=== PATIENT | female | born 1980 | race Caucasian/White ===

== ENCOUNTER 2016-07-05 10:07 | Inpatient (IN) | payer OTHER ==
[2016-06-29 09:35] LABS: BASOPHILS 0.1 %; BASOPHILS ABSOLUTE 0.01 10/3/uL (0.0-0.16); EOSINOPHILS 1.2 %; HEMATOCRIT 36.1 % (36.0-48.0); HEMOGLOBIN 11.6 g/dL (12.0-16.0); IMMATURE GRANULOCYTES 0.2 %; IMMATURE GRANULOCYTES ABSOLUTE 0.02 10/3/uL (0.0-0.11); LYMPHOCYTES 22.2 %; LYMPHOCYTES ABSOLUTE 1.92 10/3/uL (0.67-4.30); MEAN CORPUS HGB CONC 32.1 g/dL (32.0-36.0); MEAN CORPUSCULAR HEMOGLOB 24.4 pg (26.0-34.0); MEAN CORPUSCULAR VOLUME 75.8 fL (80-100); MEAN PLATELET VOLUME 9.3 fL (9.2-13.0); MONOCYTES 5.9 %; MONOCYTES ABSOLUTE 0.51 10/3/uL (0.21-1.20); NEUTROPHILS 70.4 %; NEUTROPHILS ABSOLUTE 6.08 10/3/uL (2.02-8.40); PLATELET COUNT 339 10/3/uL (150-400); RBC DISTRIBUTION WIDTH 16.6 % (12.0-16.0); RED CELL COUNT 4.76 10/6/uL (4.0-5.6); WHITE BLOOD CELLS 8.6 10/3/uL (4.5-10.5)
[2016-06-29 09:36] LABS: MANUAL DIFF NO %
[2016-06-29 09:42] LABS: PARTIAL THROMBO TIME 25.8 SEC (22.5-37.2); PROTIME (NOT ORD) 13.5 SEC (12.0-14.5)
[2016-06-29 09:56] LABS: ASCORBIC ACID (UR NOT ORDER) NEG (NEG); BILIRUBIN, URINE NEGATIVE (NEG); KETONE, URINE 80 MG/DL (NEG); LEUKOCYTE ESTERASE(NOT OR NEG (NEG); WBC (NOT ORDERED) (RFLEX) 4 (0-5)
[2016-06-29 10:31] LABS: A/G RATIO 1.2 (0.7-1.9); ALBUMIN 3.9 G/DL (3.5-5.0); ALKALINE PHOSPHATASE 47 U/L (45-117); BUN (BLOOD UREA NITROGEN) 12 MG/DL (6-23); CALCIUM, SERUM 9.1 MG/DL (8.5-10.4); CHLORIDE, SERUM 107 MMOL/L (96-112); CHOL/HDL RATIO(NOT ORDER) 4.6 (0-5); CHOLESTEROL 194 MG/DL (< 200); CO2 (CARBON DIOXIDE) 26 MMOL/L (24-34); CREATININE 0.89 MG/DL (0.55-1.02); GFR AFRICAN AMERICAN 96 ML/MIN (>=60); GFR NON AFRICAN AMERICAN 83 ML/MIN (>=60); GLOBULIN 3.2 G/DL (2.5-4.1); GLUCOSE, SERUM 106 MG/DL (60-99); HDL CHOLESTEROL 42 MG/DL (> 49); IRON, SERUM 19 MCG/DL (35-150); LDL CHOLESTEROL 121 MG/DL (< 130); NON-HDL CHOLESTEROL 152 MG/DL (< 160); POTASSIUM, SERUM 4.1 MMOL/L (3.5-5.3); SGOT(AST) 16 U/L (5-40); SGPT(ALT) 19 U/L (5-65); SODIUM, SERUM 140 MMOL/L (135-148); TOTAL BILIRUBIN 0.3 MG/DL (0-1.2); TOTAL PROTEIN 7.1 G/DL (6.0-8.5); TRIGLYCERIDE 159 MG/DL (< 150)
[2016-06-29 10:32] LABS: FOLATE 27.2 NG/ML (>5.2)
--- NOTE | ~2016-07-05 | HP ---
History And Physical [facility] [id number] [place]. [address] NAME: JOSE DAVIDMay : 78 STATUS : PRE IN PAT#: [id number] AGE: 36 ADM/REG DATE : MR#: [id number] REPORT SERV DATE: 07/01/16 DICTATED BY: EDEL FABIAN DATE: 07/01/16 REPORT STATUS : Draft TRANSCRIBED BY: MODFlores DATE: 07/01/16 DATE OF ADMISSION: 07/05/2016 DICTATED BY: Yumiko Lechuga APRN, STAS MONTERROSO CHIEF COMPLAINT: Morbid obesity. HISTORY OF PRESENT ILLNESS: The patient is a pleasant 36-year-old female, who presents for consideration for bariatric surgery, specifically the sleeve gastrectomy for the treatment of morbid obesity. In addition to her current weight, she also is struggling with several comorbidities including depression, arthropathy, reflux, and urinary incontinence. She has considered surgical intervention for years and recently attended the informational seminar at our office. She has struggled with her weight since the age of 8 and reports a maximum weight of 263 pounds in 2013. She has tried multiple attempts at weight loss in the past including low carb diets, low-calorie diets, and other self diets and exercise. She has successfully lost 25 pounds through these efforts. PAST MEDICAL HISTORY: The patient has a significant medical history for depression, currently treated with 1 medication with controlled symptoms; arthropathy of the knees, ankles, hips, and back; intermittent migraines; reflux; and urinary incontinence. PAST SURGICAL HISTORY: The patient's surgical history includes a LEEP procedure in 2003 and a section in 2006 with Pfannenstiel incision. FAMILY HISTORY: The patient's father has a significant history of diabetes, hypercholesterolemia, essential hypertension, and thyroid disorder as well as obesity. The patient's mother has a history of depressive disorder and emphysema. Sister with obesity and mitral valve disorder. SOCIAL HISTORY: The patient is a 36-year-old female who is and is employed as a training project manager at [employer]. She has a previous smoking history of 19 years, smoking approximately 1 pack per day. The patient reports quitting 06/10/2014. She denies EtOH use. MEDICATIONS: The patient's current medications include bupropion HCl SR 150 mg; diazepam 2 mg; lamotrigine 100 mg; omeprazole 20 mg; topiramate 100 mg; and zolpidem 10 mg. ALLERGIES: INCLUDE PENICILLIN AND SULFA. REVIEW OF SYSTEMS: CONSTITUTIONAL: The patient denies significant weight loss or weight gain that has been unintentional or unexplained. Denies fatigue, fever, or loss of appetite. EYES: No eye complaints. No irritation. She does currently wear glasses. HEAD, EARS, NOSE, AND THROAT: The patient reports no difficulty with hearing or ear pain. No sore throat, oral abnormalities, teeth problems, or hoarseness. CARDIOVASCULAR: Denies chest pain, palpitations, calf pain with exercise, varicose veins, History And Physical [address] [place]. [address] NAME: JOSE DAVIDMay : 78 STATUS : PRE IN PAT#: [id number] AGE: 36 ADM/REG DATE : MR#: [id number] REPORT SERV DATE: 07/01/16 DICTATED BY: EDEL FABIAN DATE: 07/01/16 REPORT STATUS : Draft TRANSCRIBED BY: MONSERRAT DATE: 07/01/16 or high blood pressure. She does report shortness of breath with moderate activity. RESPIRATORY: Denies cough, wheezing, shortness of breath coughing up blood, sleep apnea, or COPD. GASTROINTESTINAL: Reports reflux currently controlled with current medications. No abdominal pain, vomiting, diarrhea, dyspepsia, change in bowel habits, blood in stool, hepatitis, or liver disease. GENITOURINARY: No painful urination, blood in urine, increased frequency, or kidney disease. INTEGUMENTARY: No changing or abnormal moles, jaundice, rashes, nonhealing wounds, or sores. NEUROLOGICAL: The patient has history of frequent or severe headaches and migraines but denies loss of consciousness, weakness, numbness, seizures, or dizziness. PSYCHOLOGICAL: The patient does have a history of depression, currently controlled with current medications. Denies sleep disturbances, anxiety, or alcohol abuse. BLOOD AND LYMPH: The patient does have a history of low iron counts. She is currently taking MVI with iron. No blood clots, previous blood transfusions, HIV, or AIDS. PHYSICAL EXAMINATION: CONSTITUTIONAL: The patient's current weight is 242.8 pounds. Height 5 feet 3.5 inches. BMI of 42.3. VITAL SIGNS: Stable. Blood pressure 110/80, pulse 82, and temperature 97.4. GENERAL APPEARANCE: Well-nourished morbidly obese. No acute distress. Ambulating normally. HEAD: Pupils are equal, round, and reactive to light. ENT: Within normal limits. NECK: Supple. Trachea midline. No masses. CARDIOVASCULAR: Auscultation regular rate and rhythm. LUNGS: Respiratory effort without dyspnea, auscultation. No wheezes, rales, crackles, or rhonchi. Breath sounds are normal and clear to auscultation. ABDOMEN: Inspection and palpation, no tenderness, guarding, masses, or rebound tenderness. Abdomen is soft, obese, and nondistended. Bowel sounds normal. PSYCHIATRIC: Good judgment and insight. MENTAL STATUS: Normal mood and affect. The patient is active and alert. Oriented to time, place, and person. LABS: Have been completed according to preadmission testing protocol. CBC does show anemia with a red blood count of 4.76, RDW of 16.6, white blood count is normal at 8.6 with no shift, PTT 25.8, pro time 13.5. CMP shows glucose 106. Lipid panel, HDL cholesterol is 42, triglycerides 259, iron is 19; B12 is 601. TSH 2.620. Hemoglobin A1c is 5.6. Bariatric GI air study shows minimal gastroesophageal reflux into the lower esophagus, slightly delayed passage of barium tablet, otherwise normal upper GI. No hiatal hernia is found. ASSESSMENT AND PLAN: The patient is to be admitted for bariatric surgery, specifically the sleeve gastrectomy for the treatment of morbid obesity, having a BMI of 42.3 and a weight of 242.8 pounds. According to her current height and weight, she is 125.3 pounds of excess weight. This patient fulfills the NIH guidelines for bariatric surgery according to the 1991 consensus having either a BMI of more than 40 kg/m2 or BMI between 35 and 40 kg/m2 with associated comorbidities; has been overweight for at least 5 years and tried to lose weight several times and failed to maintain weight loss even with physician supervised programs. History And Physical [address] [place]. [address] NAME: MAGALY MAIN : 78 STATUS : PRE IN PAT#: [id number] AGE: 36 ADM/REG DATE : MR#: [id number] REPORT SERV DATE: 07/01/16 DICTATED BY: EDEL FABIAN DATE: 07/01/16 REPORT STATUS : Draft TRANSCRIBED BY: MONSERRAT DATE: 07/01/16 Surgical weight loss options were presented including the Vidhi-en-Y gastric bypass, biliopancreatic diversion with duodenal switch, sleeve gastrectomy, and adjustable gastric banding. This patient has chosen the sleeve gastrectomy surgery because of the features of no need for adjustments and less invasive than the Vidhi-en-Y gastric bypass with less risk of infection. The gastric bypass was not an option for this patient because of the invasiveness of the procedure, the associated risk, and the type of complications. The sleeve gastrectomy surgery, in our experience, can give this patient an average of 60% of excess weight loss over the next 12 to 18 months. The patient is aware of the risks and complications associated with the procedure which include staple leak, bleeding, obstruction, and infection which were discussed in length. Also this patient understands the importance of followup in order to achieve good result. This patient has completed a comprehensive education session and completed prior authorization steps as required by her insurance company. KWASI/MONSERRAT Edel Russo M.D. / [id number] CC: Faustina Ramirez
--- NOTE | ~2016-07-05 | OP ---
Record Of Operation [facility] [address] [place]. [address] NAME: JOSE DAVIDMay : 78 STATUS : ADM IN PAT#: [id number] AGE: 36 ADM/REG DATE : 07/05/16 MR#: [id number] REPORT SERV DATE: 07/05/16 DICTATED BY: EDEL FABIAN DATE: 07/05/16 REPORT STATUS : Draft TRANSCRIBED BY: MODFlores DATE: 07/05/16 DATE OF PROCEDURE: PREOPERATIVE DIAGNOSIS: Morbid obesity. POSTOPERATIVE DIAGNOSIS: Morbid obesity. OPERATION: Laparoscopic sleeve gastrectomy and a posterior crural repair of a moderate-sized hiatal hernia. SURGEON: Edel Fabian M.D. ANESTHESIA: General endotracheal. COMPLICATIONS: None. INDICATION OF OPERATION: This is a 36-year-old white female with morbid obesity with a BMI of 42.9 and a weight of 242 pounds and the incidental finding of a moderate-sized hiatal hernia. DESCRIPTION OF OPERATION: The patient was taken to the operating room and after adequate anesthesia, was prepped and draped in a sterile manner. A total of five trocars were placed in the upper abdomen. Carefully, we the left lobe of the liver. Clearly, we did identify there was the evidence of a sliding component of a hiatal hernia. We proceeded to remove some of the epiphrenic fat pad on top of the stomach using the Harmonic scalpel. Then, the hernia anteriorly became more evident, so we decided to enter the lesser sac at the level of the lower body of the stomach next to the greater curvature and started dissecting the greater curvature with the Harmonic scalpel all the way up to the fundus mobilized the fundus all the way up to the left austen, dissected completely left austen all the way down posteriorly. We were able to identify better that there was a hiatal defect and little bit of the sliding component of the hiatal hernia. We were able to dissect it completely at the left austen and then we approached it from the right side, opened the hepatogastric ligament with the Harmonic scalpel and exposed the right austen, dissected the right austen posteriorly, mobilized the EG junction into the intraperitoneal cavity. There was a large lipoma that was excised from the hiatus that was actually plugging the hernia defect, so we excised that with Harmonic scalpel. After excising that, the hiatal hernia was better visualized, so we were able to mobilize the junction into the intraabdominal cavity. Excised some of the hernia sac coming also from the lipoma as well as the sliding component of the stomach. Then, we put the bougie in 36-Pashto, elevated up superiorly and then identified both the right and left crura posteriorly and we were able to approximate both crura with two [id number] stitches using the Endo Stitch device with a 0 suture permanent. Both crura came together very nicely with no tension. After both crura came together very nicely, then we proceeded to put in and out the bougie, verified there was no evidence of obstruction. Then, continued dissection in the greater curvature with the Harmonic scalpel all the way down to the distal antrum to about 3 cm or so from the pylorus. Then, we introduced the 36-Pashto blunt-tip bougie suction catheter all the way down to the Record Of Operation [address] [address] NAME: JOSE DAVIDMAGALY HERNANDEZ : 78 STATUS : ADM IN [facility]#: [id number] AGE: 36 ADM/REG DATE : 07/05/16 MR#: [id number] REPORT SERV DATE: 07/05/16 DICTATED BY: EDEL FABIAN DATE: 07/05/16 REPORT STATUS : Draft TRANSCRIBED BY: MONSERRAT DATE: 07/05/16 distal antrum, put it on suction to delineate well the stomach and started stapling about 5 cm from the pylorus using the [place] automatic stapler with a green load. We used a total of five staplings from the bottom to the top. Staple line looked intact. There was no evidence of bleeding or oozing and then we tacked the greater omentum into the staple line, the top, middle, and lower portion using Vicryl 2-0 suture interrupted and then removed the bougie and put it in and out to verify there was no evidence of obstruction and it passed through the hiatus with no problems. Then, we proceeded to remove the stomach specimen through the 15-mm trocar site after we stretched it with a Kathy and then closed that fascia defect with an EFx fascia closure device using a Vicryl #0, then removed all the trocars and liver retractor under direct visualization and closed all the incisions with subcuticular Monocryl 4-0. The patient tolerated the procedure well and did not have any problems. LAY Edel Russo M.D. / [id number] CC: Edel Fabian M.D.
[~2016-07-05 10:07] MED LIST: CALTRA600D PO; LAMICTAL10 PO; MULTIPLE VIT PO; PRILO PO; TOPAMAX100 PO; VITAMIN B-122500 MCG SL; WELLSR150 PO
== END 2016-07-06 12:54 | disposition home or self-care (01) | DRG 621 ==
LOC: SDC/OF 10:07 → PACU 15:30 → 2SO 17:46
PROVIDERS: Surgery
PROC: 0BQR4ZZ (ICD-10-PCS; 2016-07-05)
PROC: 0DB64Z3 Excision of Stomach, Percutaneous Endoscopic Approach, Vertical (ICD-10-PCS; principal; 2016-07-05 12:15)
PROC: 0BQS4ZZ (ICD-10-PCS; 2016-07-05 12:15)
DX: E66.01 Morbid (severe) obesity due to excess calories (principal); F32.9 Major depressive disorder, single episode, unspecified; M19.90 Unspecified osteoarthritis, unspecified site; K21.9 Gastro-esophageal reflux disease without esophagitis; R32 Unspecified urinary incontinence; G43.909 Migraine, unspecified, not intractable, without status migrainosus; K44.9 Diaphragmatic hernia without obstruction or gangrene; Z98.890 Other specified postprocedural states; Z87.891 Personal history of nicotine dependence; Z88.0 Allergy status to penicillin; Z88.2 Allergy status to sulfonamides; Z68.41 Body mass index [BMI] 40.0-44.9, adult
CPT/HCPCS: 74246; 80053; 80061; 81001; 82607; 82746; 83036; 83540; 84443; 84703; 85025; 85610; 85730; 88307; 88342; 93005; A9270-GY; C9113; J0690; J2250; J2270; J2405; J2710; J2795; J3010